=== PATIENT | female | born 1985 | race American Indian/Alaskan Native ===

== ENCOUNTER 2018-07-19 08:43 | Emergency (ER) | payer MEDICARE ==
[2018-07-19 08:49] VITALS: BP 139/97
[2018-07-19] MEDS ORDERED: TORADOL IM ONE (10:19)
[2018-07-19] MEDS ORDERED: PROVENTIL IH ONE (10:19)
[2018-07-19] MEDS ORDERED: ATROVENT IH ONE (10:19)
[2018-07-19] MEDS ORDERED: ZOFRAN IV ONE (10:19)
[2018-07-19] MEDS ORDERED: NORCO 5/325 PO ONE (10:19)
--- NOTE | 2018-07-19 10:22 | Emergency Department Report ---
Blank Doc - Documentation Documentation: 32yo female with a past medical history of asthma presents to the Hospital complaining of a dry cough the last 2-3 days with wheezing and shortness of breath. She also complains of sticking upper chest wall pain that is reproducible with palpation and deep inspiration. Reports subjective fever yesterday but did not measure her temperature. Vomiting reported today. Patient denies recent travel, calf tenderness, or edema. On exam breath sounds are diminished with mild to minimal wheezing Reproducible sternal, upper sternal, and left upper chest wall tenderness to palpation No calf tenderness or edema Suspected chest pain musculoskeletal in nature since it is reproducible, EKG shows anterolateral T-wave inversions with no previous for comparison to prior lab work ordered including troponin and d-dimer. Chest x-ray pending. Mid-level to follow
[2018-07-19 10:49] LABS: Basophils % (Auto) 0.5 % (0.0-1.8); Eosinophils % (Auto) 0.4 % (0.0-4.3); Hematocrit 40.6 % (30.3-42.9); Hemoglobin 13.3 gm/dl (10.1-14.3); Lymphocytes # (Auto) 2.4 K/mm3 (1.2-5.4); Mean Corpuscular HGB Conc 33 % (30-34); Mean Corpuscular Hemoglobin 31 pg (28-32); Mean Corpuscular Volume 95 fl (79-97); Monocytes # (Auto) 0.8 K/mm3 (0.0-0.8); Monocytes % (Auto) 9.2 % (0.0-7.3); Platelet Count 232 K/mm3 (140-440); Red Blood Count 4.28 M/mm3 (3.65-5.03); Red Cell Distribution Width 14.2 % (13.2-15.2)
[2018-07-19] MEDS ORDERED: ZOFRAN ODT PO ONE (10:59)
[2018-07-19 11:12] LABS: Creatine Kinase MB 1.2 ng/mL (0.0-4.0)
[2018-07-19 11:13] LABS: BUN/Creatinine Ratio 13; Blood Urea Nitrogen 9 mg/dL (7-17); Calcium 9.1 mg/dL (8.4-10.2); Hemolysis Index 6
--- NOTE | 2018-07-19 13:30 | Emergency Department Report ---
ED Chest Pain HPI - General Chief Complaint: Adult Asthma Stated Complaint: SOB/CHEST PAIN Time Seen by Provider: 07/19/18 09:56 Source: patient Mode of arrival: Ambulatory Limitations: No Limitations - History of Present Illness Initial Comments: This is a 32-year-old female nontoxic, well nourished in appearance, no acute signs of distress presents to the ED with c/o of midline chest pain, dry cough, wheezing, and shortness of breathe x2 days. Patient denies any radiation of pain. Patient describes pain as aching and mainly during deep inspiration and palpation. Patient denies any other upper respiratory symptoms. Patient denies any hemoptysis, fever, chills, nausea, vomiting, headache, stiff neck, numbness, tingling, abdominal pain. Patient denies pleuritic chest pain. Patient denies any recent travels or long car rides. Patient denies any recent surgeries or any sick contacts. Patient denies any drug allergies. MD Complaint: chest pain -: days(s) (2) Pain Location: substernal Pain Radiation: none Severity: mild Severity scale (0 -10): 3 Quality: aching Consistency: intermittent Improves With: rest Worsens With: inspiration, palpation re: denies: nausea, vomting, diaphoresis, dyspnea, sense of impending doom Other Symptoms: cough. denies: fever, syncope, rash, acid taste in mouth, leg swelling, palpitations, burping Treatments Prior to Arrival: none Aspirin use within the Past 7 Days: (0) No - Related Data On Oral Contraceptives: No Previous Rx's Medication Instructions Recorded Last Taken Type ALBUTEROL Inhaler [ProAir HFA 2 puff IH QID PRN #1 inhalation 07/19/18 Unknown Rx Inhaler] Prednisone [predniSONE 10 mg 10 mg PO .TAPER #1 tab.ds.pk 07/19/18 Unknown Rx (6-Day Pack, 21 Tabs)] Allergies Allergy/AdvReac Type Severity Reaction Status Date / Time grape Allergy Hives Verified 07/19/18 08:46 Heart Score - HEART Score History: Slightly suspicious EKG: Normal Age: < 45 Risk factors: No known risk factors Troponin: < normal limit HEART Score: 0 ED Review of Systems ROS: Stated complaint: SOB/CHEST PAIN Other details as noted in HPI Constitutional: denies: chills, fever Eyes: denies: eye pain, eye discharge, vision change ENT: denies: ear pain, throat pain Respiratory: cough, shortness of breath, wheezing Cardiovascular: chest pain. denies: palpitations Endocrine: no symptoms reported Gastrointestinal: denies: abdominal pain, nausea, diarrhea Genitourinary: denies: urgency, dysuria, discharge Musculoskeletal: denies: back pain, joint swelling, arthralgia Skin: denies: rash, lesions Neurological: denies: headache, weakness, paresthesias Psychiatric: denies: anxiety, depression Hematological/Lymphatic: denies: easy bleeding, easy bruising ED Past Medical Hx - Past Medical History Hx Asthma: Yes - Surgical History Past Surgical History?: No - Social History Smoking Status: Current Every Day Smoker Substance Use Type: Alcohol - Medications Home Medications: Home Medications Medication Instructions Recorded Confirmed Last Taken Type ALBUTEROL Inhaler [ProAir HFA 2 puff IH QID PRN #1 inhalation 07/19/18 Unknown Rx Inhaler] Prednisone [predniSONE 10 mg 10 mg PO .TAPER #1 tab.ds.pk 07/19/18 Unknown Rx (6-Day Pack, 21 Tabs)] ED Physical Exam - General Limitations: No Limitations General appearance: alert, in no apparent distress - Head Head exam: Present: atraumatic, normocephalic - Eye Eye exam: Present: normal appearance Pupils: Present: normal accommodation - ENT ENT exam: Present: normal exam, mucous membranes moist - Neck Neck exam: Present: normal inspection, full ROM. Absent: tenderness, meningismus, lymphadenopathy - Respiratory Respiratory exam: Present: normal lung sounds bilaterally, wheezes (bilateral upper and lower lobes), chest wall tenderness (midline upper). Absent: respiratory distress, rales, rhonchi, stridor, accessory muscle use, decreased breath sounds, prolonged expiratory - Cardiovascular Cardiovascular Exam: Present: regular rate, normal rhythm, normal heart sounds. Absent: irregular rhythm, systolic murmur, diastolic murmur, rubs, gallop - GI/Abdominal GI/Abdominal exam: Present: soft, normal bowel sounds. Absent: distended, tenderness, guarding, rebound, rigid, diminished bowel sounds - Extremities Exam Extremities exam: Present: normal inspection, full ROM, normal capillary refill. Absent: tenderness - Back Exam Back exam: Present: normal inspection, full ROM. Absent: tenderness, CVA tenderness (R), CVA tenderness (L), muscle spasm, paraspinal tenderness, vertebral tenderness, rash noted - Neurological Exam Neurological exam: Present: alert, oriented X3, normal gait - Psychiatric Psychiatric exam: Present: normal affect, normal mood - Skin Skin exam: Present: warm, dry, intact, normal color. Absent: rash ED Course Vital Signs 07/19/18 07/19/18 07/19/18 08:46 11:06 11:18 Temperature 98.9 F Pulse Rate 99 H Respiratory 18 16 16 Rate Blood Pressure 139/97 O2 Sat by Pulse 100 Oximetry 07/19/18 07/19/18 11:48 12:06 Temperature Pulse Rate Respiratory 20 20 Rate Blood Pressure O2 Sat by Pulse Oximetry - Reevaluation(s) Reevaluation #1: 07/19/18 13:29 Patient is speaking in full sentences with no signs of distress noted. KATELIN score - Katelin Score Age > 65: (0) No Aspirin use within the Past 7 Days: (0) No 3 or more CAD Risk Factors: (0) No 2 or more Angina events in past 24 hrs: (0) No Known CAD with more than 50% Stenosis: (0) No Elevated Cardiac Markers: (0) No ST Deviation Greater than 0.5mm: (0) No KATELIN Score: 0 ED Medical Decision Making - Lab Data Result diagrams: 07/19/18 10:34 07/19/18 10:34 - Medical Decision Making This is a 32-year-old female that presents with chest pain vs. asthma exacerbation. Patient is stable and was examined by me and Dr. Solomon. KATELIN and HEART score 0 pints. Wells criteria for DVT/SVT/PE 0 points. Negative d-dimmer. Chest xray pending. EKG normal sinus rhythm with no significant changes in ST. Labs within normal limits. Negative troponin x1. Patient received breathing treatment in the ED which she stated his symptoms are improving subsided. A second trop ordered and xrays pending but patient refused and stated she has to leave. I instructed and educated patient of my concerns but patient stated will come back if it gets worse. I will still give patient with prednisone and albuterol prescription. Patient signed AMA form. Patient was instructed to Follow-up with a primary care/cargo services coordinator doctor in 3-5 days or if symptoms worsen and continue return to emergency room as soon as possible. At time of signing AMA form, patient does not seem toxic or ill in appearance. No acute signs of distress noted. No further questions noted by the patient. Critical care attestation.: If time is entered above; I have spent that time in minutes in the direct care of this critically ill patient, excluding procedure time. ED Disposition Clinical Impression: Chest pain Qualifiers: Chest pain type: unspecified Qualified Code(s): R07.9 - Chest pain, unspecified Asthma exacerbation Qualifiers: Asthma severity: mild Asthma persistence: intermittent Qualified Code(s): J45.21 - Mild intermittent asthma with (acute) exacerbation Disposition: DC-07 LEFT AGAINST MED ADVICE Is pt being admited?: No Does the pt Need Aspirin: No Condition: Stable Instructions: Chest Pain (ED), Asthma (ED) Additional Instructions: Follow-up with a primary care doctor in 3-5 days or if symptoms worsen and continue return to emergency room as soon as possible. Prescriptions: ALBUTEROL Inhaler [ProAir HFA Inhaler] 2 puff IH QID PRN #1 inhalation PRN Reason: Shortness Of Breath Prednisone [predniSONE 10 mg (6-Day Pack, 21 Tabs)] 10 mg PO .TAPER #1 tab.ds.pk Referrals: PRIMARY CARE, [Primary Care Provider] - 3-5 Days ANABELL QUIJANO MD [Staff Physician] - 3-5 Days MARLYN MURRY MD [Staff Physician] - 3-5 Days [facility] [Outside] - 3-5 Days Forms: Work/School Release Form(ED)
--- NOTE | 2018-07-19 14:12 | XRay Report ---
FINAL REPORT EXAM: XR CHEST ROUTINE 2V HISTORY: cp, sob TECHNIQUE: Frontal and lateral views of the chest. PRIORS: None currently available. FINDINGS: Cardiac silhouette is within normal limits. There is no effusion. There is no pneumothorax. There is no consolidation. There are no suspicious osseous lesions. IMPRESSION: No acute cardiopulmonary findings.
== END 2018-07-19 13:39 | disposition left against medical advice (07) ==
LOC: ED 08:43
DX: J45.21 Mild intermittent asthma with (acute) exacerbation (principal); F17.200 Nicotine dependence, unspecified, uncomplicated; Z91.018 Allergy to other foods
CPT/HCPCS: 36415; 71046; 80048; 82550; 82553; 84484; 84703; 85025; 85379; 93005; 93010; 94640; 96372; 99284; J1885; J2405; Q0162